=== PATIENT | female | born 1940 | race Caucasian/White ===

== ENCOUNTER → 2016-08-14 | Outpatient (CLI) | payer MEDICARE, BC | LOC: RAD 08:16 | PROVIDERS: ATTEND Family Medicine | DX: Z12.31 Encounter for screening mammogram for malignant neoplasm of breast (principal) ==

== ENCOUNTER → 2016-08-18 | Outpatient (CLI) | payer MEDICARE, BC ==
[2016-08-18 11:17] LABS: ANION GAP 18.5 MEQ/L (3-15)
== END ==
LOC: LAB 10:30
PROVIDERS: ATTEND Orthopaedic Surgery
DX: I10 Essential (primary) hypertension (principal)
CPT/HCPCS: 36415; 80048; 93005

== ENCOUNTER 2016-08-22 08:23 | Day surgery (SDC) | payer MEDICARE, BC ==
[~2016-08-22] VITALS: Ht 165.1 cm; Wt 114.0 kg
[~2016-08-22 08:23] MED LIST: LACTATED RINGERS 1,000 ML IV SCH; LIDOCAINE PF 1% (XYLOCAINE) 30 ML VIAL INJ ONE; SODIUM CHLORIDE FLUSH 3 ML SYR IV PRN
[2016-08-22 08:38] VITALS: BP 176/91
[2016-08-22] MEDS ORDERED: PROPOFOL 20 ML IV ONE (09:25)
[2016-08-22] MEDS ORDERED: ALFENTANIL 500 MCG/ML (ALFENTA) 5 ML AMP IV ONE (09:25)
[2016-08-22] MEDS ORDERED: MIDAZOLAM 2 MG/2 ML (VERSED) VIAL ONE (09:25)
[2016-08-22 10:09] VITALS: BP 118/63
[2016-08-22 10:45] VITALS: BP 128/69
== END 2016-08-22 11:03 | disposition home or self-care (01) ==
LOC: ASC 08:23
PROVIDERS: ATTEND Orthopaedic Surgery
DX: G56.01 Carpal tunnel syndrome, right upper limb (principal); I10 Essential (primary) hypertension; E11.9 Type 2 diabetes mellitus without complications; G47.30 Sleep apnea, unspecified; Z79.82 Long term (current) use of aspirin; Z79.84 Long term (current) use of oral hypoglycemic drugs
CPT/HCPCS: 64721; J2001; J2250; J7120

== ENCOUNTER 2016-09-05 06:36 | Day surgery (SDC) | payer MEDICARE, BC ==
[~2016-09-05] VITALS: Ht 165.1 cm; Wt 115000.0 kg
[~2016-09-05 06:36] MED LIST changes: -LIDOCAINE PF 1% (XYLOCAINE) 30 ML VIAL INJ ONE
[2016-09-05] MEDS ORDERED: LIDOCAINE 1% (XYLOCAINE) 20 ML VIAL ONE (06:52)
[2016-09-05] MEDS ORDERED: ALFENTANIL 500 MCG/ML (ALFENTA) 5 ML AMP IV ONE (06:54)
[2016-09-05] MEDS ORDERED: MIDAZOLAM 2 MG/2 ML (VERSED) VIAL ONE (06:54)
[2016-09-05 06:56] VITALS: BP 149/84
[2016-09-05] MEDS ORDERED: ONDANSETRON 2 MG/ML (Z0FRAN) 2 ML VIAL ONE (07:41)
[2016-09-05 08:06] VITALS: BP 113/54
[2016-09-05 08:31] VITALS: BP 125/76
== END 2016-09-05 08:46 | disposition home or self-care (01) ==
LOC: ASC 06:36
PROVIDERS: ATTEND Orthopaedic Surgery
PROC: 01N50ZZ Release Median Nerve, Open Approach (ICD-10-PCS; principal; 2016-09-05)
DX: G56.02 Carpal tunnel syndrome, left upper limb (principal)
CPT/HCPCS: 64721; J2250; J2405; J7120

== ENCOUNTER → 2016-10-14 | Outpatient (CLI) | payer MEDICARE, BC ==
[2016-10-14 09:02] LABS: BASOPHILS % (AUTO) 1 % (0-2); EOSINOPHILS # (AUTO) 0.2 10^3uL; EOSINOPHILS % (AUTO) 3 % (0-4); LYMPHOCYTES # (AUTO) 2.2 X10^3; MEAN CORPUSCULAR HEMOGLOBIN 31.1 PG (26.0-34.0); MEAN CORPUSCULAR HGB CONC 34.2 g/dL (31.0-37.0); MEAN CORPUSCULAR VOLUME 91 FL (80-100); MEAN PLATELET VOLUME 10.9 FL (6.0-9.5); MONOCYTES % (AUTO) 13 % (3-11); NEUTROPHILS # (AUTO) 3.9 X10^3; NEUTROPHILS % (AUTO) 53 % (51-67); PLATELET COUNT 230 10^3uL (150-450); WHITE BLOOD COUNT 7.36 10^3uL (4.0-11.0)
[2016-10-14 10:10] LABS: ALBUMIN 3.9 g/dL (3.4-5.0); ANION GAP 13.7 MEQ/L (3-15); CALCULATED IONIZED CALCIUM 4.4 mg/dL (3.8-4.6); TOTAL PROTEIN 6.8 g/dL (6.4-8.5)
[2016-10-14 10:36] LABS: BILIRUBIN,URINE Negative (Negative); CLARITY,URINE Clear; COLOR,URINE Yellow; GLUCOSE, URINE (UA) Negative (Negative); LEUKOCYTE ESTERASE ,URINE Negative (Negative); PH,URINE 6.5 (5.0 - 8.0); UROBILINOGEN,URINE 0.2 mg/dL (0.2-1.0)
[2016-10-14 10:43] LABS: RBC,URINE 0-2 /HPF; URINE CENTRIFUGED VOLUME 12 mL
== END ==
LOC: LAB 08:47
PROVIDERS: ATTEND Family Medicine
DX: E11.9 Type 2 diabetes mellitus without complications (principal)
CPT/HCPCS: 36415; 80053; 80061; 81003; 81015; 82043; 83036; 85025

== ENCOUNTER 2016-12-12 19:54 | Emergency (ER) | payer MEDICARE, BC ==
[~2016-12-12] VITALS: Ht 165.1 cm; Wt 109.0 kg
[~2016-12-12 19:54] MED LIST changes: +ALLO100T PO; +ASPI-586 PO; +GBPN300C PO; +GLIM4TAB PO; +GLIP5TAB13 PO; -LACTATED RINGERS 1,000 ML IV SCH; +LSRT50T PO; +PANT40TA3 PO; +PRAV20TA PO; +SAXA2.5T PO; -SODIUM CHLORIDE FLUSH 3 ML SYR IV PRN; +TORS5TAB5 PO
--- NOTE | 2016-12-12 21:01 | Diagnostic Imaging Report ---
Clinical indication: Patient with chest and right rib pain. Patient felt a pop when rolling over in bed. Exam: Chest x-ray, PA lateral views. Comparison: Chest x-ray dated 12/10/2015. Findings: There is mild bibasilar atelectasis. There is no interval lung infiltrate. There is no pleural effusion or pneumothorax. There is cardiomegaly. There is no significant pulmonary vascular congestion. There are hypertrophic spurs seen throughout the thoracic spine. There is no gross acute bony abnormality seen on this exam. Impression: 1: Cardiomegaly with no significant pulmonary vascular congestion. There is mild bibasilar atelectasis. 2: There is no gross acute bony abnormality seen on this exam. Dictated by: Dictated on workstation # [id number]
--- NOTE | 2016-12-12 21:04 | Diagnostic Imaging Report ---
Clinical indication: Patient with chest/right rib pain. Patient felt a pop rolling over in bed. Exam: X-ray of the right ribs, 3 views. Comparison: Chest x-ray dated 12/10/2015. Findings and impression: 1: There is osteopenia and lung parenchymal shadows which obscure bony detail. 2: There is no definite cortical disruption or fracture seen on this exam. 3: There are hypertrophic spurs involving the thoracic spine. Dictated by: Dictated on workstation # [id number]
[2016-12-12 21:35] VITALS: BP 161/67
== END 2016-12-12 21:30 | disposition home or self-care (01) ==
LOC: ED 19:55
DX: S22.31XA Fracture of one rib, right side, initial encounter for closed fracture (principal); X50.9XXA Other and unspecified overexertion or strenuous movements or postures, initial encounter; Y92.89 Other specified places as the place of occurrence of the external cause; Y93.89 Activity, other specified; Y99.8 Other external cause status
CPT/HCPCS: 71020; 71100; 99282; 99283